=== PATIENT | male | born 1980 | race Two or more races ===

== ENCOUNTER 2017-10-11 10:54 | Outpatient (CLI) | payer OTHER | END 2017-10-11 13:50 | disposition home or self-care (01) | LOC: MRI 10:54 | DX: M75.51 Bursitis of right shoulder (principal); M25.511 Pain in right shoulder | CPT/HCPCS: 73221 ==

== ENCOUNTER 2017-10-11 10:57 | Outpatient (CLI) | payer OTHER | END 2017-10-11 13:13 | disposition home or self-care (01) | LOC: RAD 10:57 | DX: M25.522 Pain in left elbow (principal) ==